=== PATIENT | male | born 1990 | race Caucasian/White ===

== ENCOUNTER 2020-04-09 06:29 | Emergency (ER) | payer BC ==
[~2020-04-09] VITALS: Ht 185.4 cm; Wt 138.3 kg
--- OUTSIDE RECORDS SUMMARY | ~2020-04-09 | XMS | Clinical Summary ---
Demographics + + + | Address | [address] | | | [place] [address] | + + + | Home Phone | | + + + | Preferred Language | Unknown | + + + | Marital Status | Single | + + + | Taoism Affiliation | Unknown | + + + | Race | Unknown | + + + | Ethnic Group | Unknown | + + + Author + + + | Author | [facility] | | | and [place] | + + + | Organization | [facility] | | | and [place] | + + + | Address | Unknown | + + + | Phone | Unavailable | + + + Support + + +---------+ + | Name | Relationship | Address | Phone | + + +---------+ + | Kingsley Shore | ECON | Unknown | | + + +---------+ + Care Team Providers + +------+ + | Care Calciminer Name | Role | Phone | + +------+ + | Soo Cuevas PA-C | PCP | | + +------+ + Allergies No Known Allergies Medications + + + +---------+------+------+-------+ | Medication | Sig | Dispensed | Refills | Star | End | Statu | | | | | | t | Date | s | | | | | | Date | | | + + + +---------+------+------+-------+ | ibuprofen (EQL | Take by mouth as | | 0 | | | Activ | | IBUPROFEN) 200 mg | needed for Pain or | | | | | e | | tablet | Other (Sciatic). | | | | | | + + + +---------+------+------+-------+ | | Take by mouth as | | 0 | | | Activ | | aspirin-acetaminophe | needed for | | | | | e | | n-caffeine (EXCEDRIN | Headaches. | | | | | | | EXTRA STRENGTH) | | | | | | | | 250-250-65 MG per | | | | | | | | tablet | | | | | | | + + + +---------+------+------+-------+ | fenofibrate | Take 67 mg by mouth | | 0 | | | Activ | | micronized | Daily. | | | | | e | | (FENOFIBRATE) 67 mg | | | | | | | | capsule | | | | | | | + + + +---------+------+------+-------+ | lisinopril | Take 10 mg by mouth | | 0 | | | Activ | | (PRINIVIL, ZESTRIL) | Daily. | | | | | e | | 10 mg tablet | | | | | | | + + + +---------+------+------+-------+ | lisinopril | | | 0 | 11/2 | | Activ | | (PRINIVIL, ZESTRIL) | | | | 2/20 | | e | | 5 mg tablet | | | | 19 | | | + + + +---------+------+------+-------+ Active Problems Not on file Family History + + +------+ + | Medical History | Relation | Name | Comments | + + +------+ + | Diabetes | Father | | | + + +------+ + | Heart disease | Father | | | + + +------+ + | Hypertension | Father | | | + + +------+ + | No known problems | Maternal | | | | | Grandfath | | | | | er | | | + + +------+ + | No known problems | Maternal | | | | | Grandmoth | | | | | er | | | + + +------+ + | No known problems | Mother | | | + + +------+ + | No known problems | Paternal | | | | | Grandfath | | | | | er | | | + + +------+ + | No known problems | Paternal | | | | | Grandmoth | | | | | er | | | + + +------+ + | Cancer | Neg Hx | | | + + +------+ + | Mental illness | Neg Hx | | | + + +------+ + + +------+--------+ + | Relation | Name | Status | Comments | + +------+--------+ + | Father | | | | + +------+--------+ + | Maternal Grandfather | | | | + +------+--------+ + | Maternal Grandmother | | | | + +------+--------+ + | Mother | | Alive | | + +------+--------+ + | Paternal Grandfather | | | | + +------+--------+ + | Paternal Grandmother | | | | + +------+--------+ + Social History + +-------+ +--------+------+ | Tobacco Use | Types | Packs/Day | Years | Date | | | | | Used | | + +-------+ +--------+------+ | Never Smoker | | | | | + +-------+ +--------+------+ + +---+---+---+ | Smokeless Tobacco: | | | | | Never Used | | | | + +---+---+---+ + + +---------+ + | Alcohol Use | Drinks/Week | oz/Week | Comments | + + +---------+ + | Not Currently | | | very rarely | + + +---------+ + + + + | Sex Assigned at | Date Recorded | | | | + + + | Not on file | | + + + Last Filed Vital Signs + + + + + | Vital Sign | Reading | Time Taken | Comments | + + + + + | Blood Pressure | 128/72 | 09/30/2019 8:14 AM | | | | | PST | | + + + + + | Pulse | 80 | 09/30/2019 8:14 AM | | | | | PST | | + + + + + | Temperature | - | - | | + + + + + | Respiratory Rate | 18 | 09/30/2019 8:14 AM | | | | | PST | | + + + + + | Oxygen Saturation | 98% | 09/30/2019 8:14 AM | | | | | PST | | + + + + + | Inhaled Oxygen | - | - | | | Concentration | | | | + + + + + | Weight | 137.4 kg (302 lb | 09/30/2019 8:14 AM | | | | 14.6 oz) | PST | | + + + + + | Height | 185.4 cm (6' 1") | 09/30/2019 8:14 AM | | | | | PST | | + + + + + | Body Mass Index | 39.96 | 09/30/2019 8:14 AM | | | | | PST | | + + + + + Plan of Treatment + + + + + | Health Maintenance | Due Date | Last | Comments | | | | Done | | + + + + + | Hepatitis C | | | | | Screening | 1 | | | + + + + + | Med Mgmt: BUN | | | | | | 1 | | | + + + + + | Med Mgmt: Cr | | | | | | 1 | | | + + + + + | Med Mgmt: K | | | | | | 1 | | | + + + + + | Med Mgmt: eGFR | | | | | | 1 | | | + + + + + | Medication | | | | | Management | 1 | | | + + + + + | Vaccine: | | 10/16/19 | | | Dtap/Tdap/Td (7 - | 6 | 06, | | | Td) | | 09/29/18 | | | | | 97, | | | | | 08/09/19 | | | | | 92, | | | | | Addition | | | | | al | | | | | history | | | | | exists | | + + + + + | Vaccine: Influenza | | 07/08/20 | | | (#1) | 0 | 02 | | + + + + + Results Not on filefrom Last 3 Months Insurance +-------+--------+ +--------+-------+---------+------+ | Payer | Benefi | Subscriber | Effect | Phone | Address | Type | | | t Plan | ID | luz | | | | | | / | | Dates | | | | | | Group | | | | | | +-------+--------+ +--------+-------+---------+------+ | BCBS | BCBS | [id number] | 02/08/20 | | | PPO | | | FEDERA | | 16-Pre | | | | | | L FEP | | sent | | | | +-------+--------+ +--------+-------+---------+------+ + +--------+ +--------+ + + | Guarantor Name | Accoun | Relation to | Date | Phone | Billing Address | | | t Type | Patient | of | | | | | | | | | | + +--------+ +--------+ + + | Delroy Mccormack | Person | Self [birth year] | [address] | | | al/[place] | | 1989 | [phone] | [place] [address] | | | betty | | | 4 (Home) | | + +--------+ +--------+ + + Advance Directives + + + + + | Type | Date Recorded | Patient | Explanation | | | | Lathe Spotter | | + + + + + | Power of | | | | | Needle Leader | | | | + + + + + | Advance | | | | | Directive | | | | + + + + +
--- OUTSIDE RECORDS SUMMARY | ~2020-04-09 | XMS | Encounter Summary ---
Demographics + + + | Address | [address] | | | [place] [address] | + + + | Home Phone | | + + + | Preferred Language | Unknown | + + + | Marital Status | Single | + + + | Jewish Affiliation | Unknown | + + + | Race | Unknown | + + + | Ethnic Group | Unknown | + + + Author + + + | Author | [facility] | | | and [place] | + + + | Organization | [facility] | | | and [place] [...] Team Providers + +------+ + | Care Materials Assistant Name | Role | Phone | + +------+ + | Soo Cuevas PA-C | PCP | | + +------+ + Reason for Referral Evaluate & Treat (Routine) +--------+ + + + + + | Status | Reason | Specialty | Diagnoses / | Referred By | Referred To | | | | | Procedures | Contact | Contact | +--------+ + + + + + | Closed | Specialty | Physical | Diagnoses | Radu | JACEK | | | Services | Therapy | Lumbar disc | Thiago Nunes | SHANE | | | Required | | herniation | MD [address] PHYSICAL | | | | | | [address] | THERAPY - | | | | | | [address] | [place] | | | | | | [place], | [address] | | | | | | [place] [address] | [address] | | | | | | Phone: | [address] | | | | | | [phone] | [place], [place] | | | | | | Fax: | [address] | | | | | | [phone] | Phone: | | | | | | | [phone] | | | | | | | Fax: | | | | | | | [phone] | +--------+ + + + + + Reason for Visit + + + | Reason | Comments | + + + | New Patient | | + + + | Back Pain | | + + + | Numbness | Right lower extremity | + + + Evaluate & Treat (Urgent) + +--------+ + + + + | Status | Reason | Specialty | Diagnoses / | Referred By | Referred To | | | | | Procedures | Contact | Contact | + +--------+ + + + + | Authorized | | Neurosurgery | Diagnoses | Dahle, | [facility] | | | | | | Soo Salgado, | Neurosurgery | | | | | Radiculopath | PA-C [address] | | | | | y, lumbar | [address] | | | | | region | [address]VE | [place], | | | | | | [place], | [place] [address] | | | | | | [place] [address] | Phone: | | | | | | Phone: | [phone] | | | | | | [phone] | Fax: | | | | | | Fax: | [phone] | | | | | | [phone] | | + +--------+ + + + + Encounter Details +--------+---------+ + + + | Date | Type | Department | Care Team | Description | +--------+---------+ + + + | 09/30/ | Office | [facility] | Thiago Lovelace | Lumbar disc | | 2019 | Visit | [place] [address] | MD [address] | herniation (Primary | | | | [address] | [address] [place] | Dx) | | | | [place] | [place] [address] | | | | | [address] | [phone] | | | | | [phone] | | | +--------+---------+ + + + Social History + +-------+ +--------+------+ | [...] on file | | + + + documented as of this encounter Last Filed Vital Signs + + + [...] | | + + + + + documented in this encounter Patient Instructions Patient Instructions Eden Pantoja Cert MA - 09/30/2019 8:00 AM PST - Your MRI was reviewed with you today and you have a disc herniation at L4-L5. - A disc bulge can heal on it's own at times. You may want to consider waiting on surgery b ecause some of your symptoms have improved. If symptoms worsen or fail to improve contact o ur office and schedule an appointment with Dr. Lovelace to discuss your symptoms. - Physical therapy will continue to help these symptoms possibly. We will put in a referral asking them to work on hamstring stretches. -Let pain be your guide. If you are doing an activity that starts causing you pain, back o ff and ease back into it slowly. We don't want you taking any risks that do not need to be taken. documented in this encounter Progress Notes Thiago Lovelace MD - 09/30/2019 8:00 AM PST Thiago Lovelace MD [address] [place] [address], [address] [place] [address] PHONE: FAX: NEUROSURGERY HISTORY AND PHYSICAL EXAMINATION CHIEF COMPLAINT: Chief Complaint Patient presents with New Patient Back Pain Numbness Right lower extremity HISTORY OF PRESENT ILLNESS: The patient is a 29 y.o. male with the complaint of low back p ain and numbness in the right leg and foot that began around early July. He describes t hat his symptoms may be from extended periods of bad posture. He is here today with his moth er. In early July he had severe right posterior leg pain that has largely resolved. Overall his pain has improved in the past month. His pain overall is a little better than it was a month ago. Right lateral foot numbness has improved. The back pain does radiate into the ri ght gluteal area but again does not radiate down the right leg. The back symptoms have been stable. He rates the back pain as moderate. The back symptoms are daily. He describes the back pain as numbing, shooting, dull and throbbing. Does not use narcotics for his back pain he simply uses Excedrin at this point. He no longer takes a ny muscle relaxants His symptoms improve with rest, changing position and laying on his stomach and worsens wit h sitting. He does not report any change in bowel or bladder function recently. He has tried Physical Therapy, Chiropractic, TENS, NSAIDS and Muscle relaxer's. He has not had any injections. He does smoke marijuana recreationally on a daily basis. PAST MEDICAL HISTORY: Past Medical History: Diagnosis Date Encounter for general adult medical examination with abnormal findings Essential hypertension Hypertriglyceridemia Hypothyroidism, unspecified Low back pain Lumbago with sciatica, right side Muscle spasm of back Obesity Pain in right lower leg Radiculopathy, lumbar region PAST SURGICAL HISTORY: History reviewed. No pertinent surgical history. CURRENT MEDICATIONS: Current Outpatient Medications Medication Sig Dispense Refill ogoewkh-prcrfofqsfwiu-xgjalieo (EXCEDRIN EXTRA STRENGTH) 250-250-65 MG per tablet Take by mouth as needed for Headaches. fenofibrate micronized (FENOFIBRATE) 67 mg capsule Take 67 mg by mouth Daily. ibuprofen (EQL IBUPROFEN) 200 mg tablet Take by mouth as needed for Pain or Other (Sci atic). lisinopril (PRINIVIL, ZESTRIL) 10 mg tablet Take 10 mg by mouth Daily. lisinopril (PRINIVIL, ZESTRIL) 5 mg tablet No current facility-administered medications for this visit. ALLERGIES: No Known Allergies SOCIAL HISTORY: The patient reports that he has never smoked. He has never used smokeless tobacco. He repo rts previous alcohol use. He reports current drug use. Frequency: 5.00 times per week. Drug: Marijuana. FAMILY HISTORY: Family History Problem Relation Age of Onset Heart disease Father Hypertension Father Diabetes Father No known problems Mother No known problems Maternal Grandmother No known problems Maternal Grandfather No known problems Paternal Grandmother No known problems Paternal Grandfather Cancer Neg Hx Mental illness Neg Hx Review of Systems Constitutional: Negative. HENT: Negative. Eyes: Positive for blurred vision. Respiratory: Negative. Cardiovascular: Negative. Gastrointestinal: Negative. Genitourinary: Negative. Musculoskeletal: Positive for back pain. Skin: Negative. Neurological: Negative. Endo/Heme/Allergies: Negative. Psychiatric/Behavioral: Negative. PHYSICAL EXAMINATION: Blood pressure 128/72, pulse 80, resp. rate 18, height 1.854 m (6' 1"), weight (!) 137.4 kg (302 lb 14.6 oz), SpO2 98 %. Body mass index is 39.96 kg/m. GENERAL: Delroy Mccormack is in no acute distress with unlabored respirations. He does appear comfortable throughout the exam today. ABDOMEN: The patient is obese. EXTREMITIES: No cyanosis, clubbing, or edema. Distal pulses are normal. NEUROLOGICAL EXAM: MENTAL STATUS: He is awake, alert, and oriented. He follows simple and complex commands. His speech is fluent, he comprehends speech well, and he repeats well. He has no apparent deficits with short or ocean transportation intermediary memory. MOTOR EXAM: (5 IS NORMAL) * Indicates pain limited MUSCLE/ MOVEMENT: RIGHT LEFT Hip Flexion 5 5 Hip Extension 5 5 Knee Flexion 5 5 Knee Extension 5 5 Dorsiflexion 5 5 Extensor Hallicus Longus 5 5 Plantarflexion 5 5 REFLEXES: (2 OR 2+ IS NORMAL) REFLEX: RIGHT LEFT PATELLAR 2 2 ACHILLES 2 2 CLONUS NEGATIVE NEGATIVE BABINSKI DOWNGOING DOWNGOING PLANTAR DOWNGOING DOWNGOING GAIT: Casual gait is brisk. No atrophy or fasciculations. Walks on toes and heels without difficulty. PERIPHERAL NERVE/MISC: Walks on his toes and heels normally. Straight leg raise is negative bilaterally. Hamstring tightness on right straight leg raising. No radicular pain. Howard's test of the hips is negative bilaterally. Pinprick sensation in lower extremitie s is normal TEST AND RADIOGRAPHIC REVIEW: His imaging was reviewed in detail today during the visit. The MRI from 08/27/2019 shows a large right L5-S1 disc herniation which would be in position to compress the right S1 nerve root. Lumbar x-rays from 07/24/2019 shows mild spondylotic changes at L4-5 not symptomatically re levant. ASSESSMENT: Re-solving right L5-S1 disc herniation with right S1 radiculopathy. Mr. and drags of leg p ain has essentially resolved and his right foot paresthesias are also improving which would suggest that the disc herniation while it was quite large on August 27 may well be involut ing on its own. Certain that since his leg pain is improving as well as the numbness we do not need to consider surgery at this point. GENERAL DIAGNOSES: Past Medical History: Diagnosis Date Encounter for general adult medical examination with abnormal findings Essential hypertension Hypertriglyceridemia Hypothyroidism, unspecified Low back pain Lumbago with sciatica, right side Muscle spasm of back Obesity Pain in right lower leg Radiculopathy, lumbar region PLAN: I reviewed the patients MRI with the patient. He has a disc herniation at L5-S1 I discussed that he can continue to physical therapy because his symptoms have improved some. He can al so get an injection if he wishes. I reviewed with him that most people with a disc herniati on do wind up gradually improving without needing to resort to surgery. Reviewed the option of an epidural steroid injection should his symptoms stagnate or worsen. I will refer him to physical therapy for L5-S1 disc herniation. He would like physical sciences professor apy at [facility] physical therapy in [place]. I would like for physical therapy to work on right hamstring tightness with stretches as well. I, Thiago Lovelace MD, personally performed the services described in this documentati on, as scribed by BETTINA Bernstein in my presence, and it is both accurate and complet e. Thiago Lovelace MD 09/30/19 ELECTRONICALLY SIGNED BY: Thiago Lovelace MD, 09/30/2019 9:03 AM documented in thi s encounter Plan of Treatment + + +--------+ + + | Name | Type | Priori | Associated Diagnoses | Order Schedule | | | | ty | | | + + +--------+ + + | Physical Therapy - | Outpatient | Routin | Lumbar disc | Ordered: 09/30/2019 | | Ambulatory Referral | Referral | e | herniation | | + + +--------+ + + documented as of this encounter Visit Diagnoses + + | Diagnosis | + + | Lumbar disc herniation - Primary Displacement of lumbar intervertebral disc without | | myelopathy | + + documented in this encounter
--- OUTSIDE RECORDS SUMMARY | ~2020-04-09 | XMS | Encounter Summary ---
Demographics + + + | Address | [address] | | | [place] [address] | + + + | Home Phone | | + + + | Preferred Language | Unknown | + + + | Marital Status | Single | + + + | Temple Affiliation | Unknown | + + + | Race | Unknown | + + + | Ethnic Group | Unknown | + + + Author + + + | Author | [facility] | | | and [place] | + + + | Organization | [facility] | | | and [place] | [...] Team Providers + +------+ + | Care Mechanical Tech Name | Role | Phone | + +------+ + | Soo Cuevas PA-C | PCP | | + +------+ + Encounter Details +--------+ + + + + | Date | Type | Department | Care Team | Description | +--------+ + + + + | 09/17/ | Abstract | [facility] | Provider, | | | 2020 | | NEUROSURGERY [address] | [address] | | | | | [address] | [address] | | | | | [place] | [place] [address] | | | | | [address] | | | | | | [phone] | | | +--------+ + + + + Social History + +-------+ +--------+------+ | Tobacco Use | Types | Packs/Day | Years | Date | | | | | Used | | + +-------+ +--------+------+ | Never Smoker | | | | | + +-------+ +--------+------+ + +---+---+---+ | Smokeless Tobacco: | | | | | Never Used | | | | + +---+---+---+ + + + | Sex Assigned at | Date Recorded | | | | + + + | Not on file | | + + + documented as of this encounter Plan of Treatment Not on filedocumented as of this encounter Visit Diagnoses Not on filedocumented in this encounter"
--- OUTSIDE RECORDS SUMMARY | ~2020-04-09 | XMS | Encounter Summary ---
Demographics + + + | Address | [address] | | | [place] [address] | + + + | Home Phone | | + + + | Preferred Language | Unknown | + + + | Marital Status | Single | + + + | Religion Affiliation | Unknown | + + + | Race | Unknown | + + + | Ethnic Group | Unknown | + + + Author + + + | Author | [facility] | | | and [place] | + + + | Organization | [facility] | | | and [place] [...] Team Providers + +------+ + | Care Leaf Tier Name | Role | Phone | + +------+ + PCP | Unavailable | + +------+ + Encounter Details +--------+ + + + + | Date | Type | Department | Care Team | Description | +--------+ + + + + | 08/31/ | Imaging | [facility] | Provider, | | | 2019 | Exam | [facility] | [address] | | | | | IMAGING [address] | [address] | | | | | [address] | [place] [address] | | | | | [place] [address] | | | | | | [phone] | | | +--------+ + + + + Social History + +-------+ +--------+------+ | Tobacco Use | Types | Packs/Day | Years | Date | | | | | Used | | + +-------+ +--------+------+ | Never Assessed | | | | | + +-------+ +--------+------+ + + + | Sex Assigned at | Date Recorded | | | | + + + | Not on file | | + + + documented as of this encounter Plan of Treatment Not on filedocumented as of this encounter Procedures + +--------+ + + + | Procedure Name | Priori | Date/Time | Associated Diagnosis | Comments | | | ty | | | | + +--------+ + + + | MRI LUMBAR SPINE WO | Routin | 08/27/2019 | | Results for this | | CONTRAST | e | 12:00 AM | | procedure are in the | | | | PST | | results section. | + +--------+ + + + documented in this encounter Results MRI Lumbar Spine wo Contrast (08/27/2019 12:00 AM PST) + + | Specimen | + + | | + + + + + | Narrative | Performed At | + + + | External films for comparison only | [facility] | | | | | No results will be in the chart. | | + + + + +---------+ + + | Performing | Address | City/State/Zipcode | Phone Number | | Organization | | | | + +---------+ + + | [facility] | | | | + +---------+ + + documented in this encounter Visit Diagnoses Not on filedocumented in this encounter"
--- OUTSIDE RECORDS SUMMARY | ~2020-04-09 | XMS | Encounter Summary ---
Demographics + + + | Address | [address] | | | [place] [address] | + + + | Home Phone | | + + + | Preferred Language | Unknown | + + + | Marital Status | Single | + + + | Mandaen Affiliation | Unknown | + + + | Race | Unknown | + + + | Ethnic Group | Unknown | + + + Author + + + | Author | [facility] | | | and [place] | + + + | Organization | [facility] | | | and [place] [...] Team Providers + +------+ + | Care Sample Patternmaker Name | Role | Phone | + +------+ + | Soo Cuevas PA-C | PCP | | + +------+ + Reason for Visit + + + | Reason | Comments | + + + | Pain Management | initial encounter | + + + Encounter Details +--------+ + + + + | Date | Type | Department | Care Team | Description | +--------+ + + + + | 09/28/ | Documentati | [facility] | Thiago Lovelace | Pain Management | | 2020 | on | NEUROSURGERY [address] | [address] | (initial encounter) | | | | [address] | [address] [place] | | | | | [place], [place] | [place] [address] | | | | | [address] | [phone] | | | | | [phone] | | | +--------+ + + + [...] + + documented as of this encounter Progress Notes Eden Pantoja Cert MA - 09/28/2019 12:33 PM PSTPatient states he is not taking pain medi cations. (medication strength, dose, frequency) [facility] PATIENT ACCESS MANAGER was checked on 09/28/19 and no medications have been dispensed in the last 3 months. documented in th is encounter Plan of Treatment Not on filedocumented as of this encounter Visit Diagnoses Not on filedocumented in this encounter"
--- OUTSIDE RECORDS SUMMARY | ~2020-04-09 | XMS | Encounter Summary ---
Demographics + + + | Address | [address] | | | [place] [address] | + + + | Home Phone | | + + + | Preferred Language | Unknown | + + + | Marital Status | Single | + + + | Buddhist Affiliation | Unknown | + + + | Race | Unknown | + + + | Ethnic Group | Unknown | + + + Author + + + | Author | [facility] | | | and [place] | + + + | Organization | [facility] | | | and [place] | [...] Providers + +------+ + | Care Materials Scheduler Name | Role | Phone | + [...] | [address] | [place] [address] | | | | | [place] [address] | | | | | | [phone] | | | +--------+ + + + [...] | + +--------+ + + + | XR LUMBAR SPINE 4 + | Routin | 07/24/2019 | | Results for this | | VW | e | 12:00 AM | | procedure are in the | | | | PST | | results section. | + +--------+ + + + documented in this encounter Results XR Lumbar Spine 4 + Vw (07/24/2019 12:00 AM PST) + + | Specimen [...]
[2020-04-09] MEDS ORDERED: LISINOPRIL10 MG PO (06:49)
[2020-04-09] MEDS ORDERED: FENOFIBRATE160 MG PO (06:49)
--- NOTE | 2020-04-09 13:13 | EKG ---
[facility] [address] [facility] [place], [place] [address] Signed Normal sinus rhythm Normal ECG When compared with ECG of 26-JAN-2019 04:36, No significant change was found Confirmed by KAELYN HERNANDEZ DO ([id number]) on 04/09/2020 1:13:36 PM Electronically Signed By: KAELYN HERNANDEZ DO 04/09/20 1313 PATIENT NAME: JESUS ALBERTO DUFF Electrocardiogram DATE OF : 89 PHYSICIAN: KAELYN HERNANDEZ DO REPORT #: [id number] REPORT IS CONFIDENTIAL AND NOT TO BE RELEASED WITHOUT AUTHORIZATION
== END 2020-04-09 08:32 | disposition short-term general hospital (02) ==
LOC: ED 06:29
DX: R55 Syncope and collapse (principal); I10 Essential (primary) hypertension; Z79.899 Other long term (current) drug therapy
CPT/HCPCS: 80053; 83735; 84484; 85025; 93005; 93010; 99285-25; J7030